=== PATIENT | male | born 1985 | race Caucasian/White ===

== ENCOUNTER 2021-06-28 07:46 | Emergency (ER) | payer BC, SELFPAY ==
[2021-06-28 07:47] VITALS: BP 169/103; PULSE 51; RESP 16; TEMP 36; O2SAT 99; BMI 21.6
--- NOTE | 2021-06-28 07:56 | CT_ITS ---
STUDY: CT ABDOMEN AND PELVIS WITHOUT CONTRAST REASON FOR EXAM: Male, 36 years old. Left flank pain. History of kidney stones. RADIATION DOSAGE (If Supplied By Facility): CTDIvol = ( 6.25 ) mGy, DLP = ( 298.42 ) mGycm TECHNIQUE: Transaxial images were obtained from the dome of the diaphragm to the symphysis pubis without oral contrast, and without intravenous contrast. Sagittal and coronal images were reconstructed. Individualized dose optimization techniques were used for this CT. COMPARISON: None. FINDINGS: The visualized lung bases are unremarkable. The visualized portions of the heart are within normal limits. Normal liver. Normal gallbladder and extrahepatic biliary system. Normal spleen. Normal pancreas. Normal bilateral adrenal glands. 2 mm calculus in the midpole calyx of the right kidney. Tiny nonobstructive calculi are seen in the lower pole calyx of the right kidney. Tiny nonobstructive left intrarenal calculi. Mild degree of the left hydronephrosis and left hydroureter due to a 2.6 mm calculus at the left ureterovesical junction. Normal visualized stomach. Normal small intestine. Normal colon. The appendix is visualized and appears normal. Normal abdominal aorta. Normal inferior vena cava. Normal retroperitoneum. Normal urinary bladder. Normal abdominal wall. Normal osseous structures. CT/Abdomen/Pelvis without Cont IMPRESSION: 2.6 mm calculus at the left ureterovesical junction causing a mild degree of left hydronephrosis and left hydroureter. Small bilateral nonobstructive intrarenal calculi. Electronically Signed: Arpan Hernandez MD at 8:34 EST , Service support ,
--- NOTE | 2021-06-28 07:58 | ED.VIS.GI ---
HPI HPI - GI History of Present Illness Chief Complaint: Abd Pain Informant: patient Abdominal Pain/Flank Pain Onset: Today Context: Sudden Onset Timing: Continuous Quality: Aching Location: LUQ and LLQ Worsened by: Nothing Relieved by: Nothing Nausea/Vomiting/Emesis GI Symptom: Negative for Nausea and Vomiting Diarrhea/Melena/Hematochezia GI Symptom: Negative for Diarrhea, Melena and Hematochezia Narrative Narrative: Patient presents with left-sided abdominal pain that began today. Patient states he had a bowel movement around 4 AM and his pain started shortly after that. Patient states the pain is over the left mid abdomen. Patient states nothing makes it better nothing makes it worse. Patient denies any nausea or vomiting. Patient denies any diarrhea, melena, or hematochezia. Patient denies any dysuria, hematuria, or frequency. Patient admits to some subjective chills but denies any fevers. [facility] Medical History (Updated 06/28/21 @ 09:[address] Jacob De Guzman DO) Kidney calculi Medical History no medical history no medical history Home Medications hydrocodone-acetaminophen 1 tab PO Q6H PRN PRN 3 Days #10 tablet 06/28/21 [Rx Last Taken Unknown] Allergy/AdvReac Type Severity Reaction Status Date / Time No Known Allergies Allergy Verified 06/28/21 08:03 Surgical History no surgical history no surgical history Social History Smoking Status: Never smoker ROS ROS ED Constitutional Constitutional ED: Denies chills or fever(s) Eyes Eyes: Denies blurry vision or change in vision ENT ENT ED: Denies rhinorrhea or sore throat Cardiovascular Cardiovascular: Denies chest pain or palpitations Respiratory/Chest Respiratory/Chest: Denies cough or dyspnea Gastrointestinal Gastrointestinal: Reports abdominal pain; Denies diarrhea, nausea or vomiting Genitourinary Genitourinary ED: Denies dysuria or hematuria Musculoskeletal Musculoskeletal: Denies back pain or neck pain Integumentary Denies abscess or rash Neurologic Neurologic: Denies headache(s) or weakness Allergic/Immunologic Allergic/Immunologic ED: Denies mouth swelling or urticaria EXAM Physical Exam Const Vital Signs: 06/28/21 07:47 06/28/21 08:00 Temperature 96.8 F L 96.8 F L Temperature Source Temporal Temporal Pulse Rate 51 L 51 L Respiratory Rate 16 16 Blood Pressure 169/103 H 169/103 H Blood Pressure Mean 125 125 Pulse Ox 99 99 Oxygen Delivery Method Room Air Room Air Positive well nourished and well developed General Appearance ED: well developed HEENT Reports moist mucous membranes Neck supple and no JVD Resp normal respiratory effort and clear to auscultation bilaterally Cardio regular rate, regular rhythm and no murmurs GI normal to inspection, nondistended, normoactive bowel sounds Palpation: soft and tender LLQ (Mild) and LUQ; Negative for guarding or rebound tenderness present Back/Spine General Back: CVA tenderness left Extremity normal to inspection General Extremety ED: Negative for edema or tenderness General Extremity: Negative for edema Neuro oriented x3, CN's II-XII intact bilaterally and no sensory deficits noted Sensorium / Orientation: alert Motor Exam: strength 5/5 throughout Psych mental status grossly normal Skin no rashes or lesions noted MDM MDM MDM Narrative Medical decision making narrative: Patient was given IV fluids, morphine, and Zofran. CBC shows a mild leukocytosis of 16.2. Comprehensive metabolic profile showed a elevated creatinine of 1.72. Glucose was slightly elevated at 170. Urinalysis does not show any evidence of urinary tract infection. CT scan of the abdomen pelvis was obtained. There is a 2.6 mm stone at the left ureterovesicular junction causing mild hydronephrosis and hydroureter. There are small nonobstructive renal calculi noted as well. This was interpreted by the radiologist and reviewed by myself. Patient was feeling better on reevaluation. Patient was advised of his findings. Patient states he has had a kidney stones in the past but has not had one in over a year. Patient was given a prescription for [place]. Patient was advised that his labs should normalize after he passes the stone. Patient was given a referral for urology. Patient was instructed to return if worse in any way. Patient understood and was agreeable with the plan. All questions were answered. Lab Data Attestation: I reviewed the patient's lab results. Labs: Laboratory Results - last 24 hr 06/28/21 06/28/21 06/28/21 08:02 08:02 08:02 WBC 16.2 H RBC 5.37 Hgb 15.3 Hct 46.4 MCV 86.4 MCH 28.5 MCHC 33.0 RDW Std Deviation 38.7 RDW Coeff of Francisca 12.4 Plt Count 207 MPV 9.9 Immature Gran % (Auto) 0.500 Neut % (Auto) 90.9 H Lymph % (Auto) 5.7 L [place] % (Auto) 2.7 Eos % (Auto) 0.1 Baso % (Auto) 0.1 Absolute Neuts (auto) 14.7 H Absolute Lymphs (auto) 0.92 Nucleated RBC % 0 Sodium 139 Potassium 3.8 Chloride 104 Carbon Dioxide 29.0 Anion Gap 6 BUN 17 Creatinine 1.72 H Estim Creat Clear Calc 57.91 Est GFR (MDRD) Af Amer 58 L Est GFR (MDRD) Non-Af 48 L BUN/Creatinine Ratio 9.9 L Glucose 170 H Calcium 9.3 Total Bilirubin 0.50 AST 10 L ALT 24 Alkaline Phosphatase 65 Total Protein 7.8 Albumin 4.3 Globulin 3.5 Albumin/Globulin Ratio 1.2 Lipase 177 Urine Color Yellow Urine Clarity Sl. Cloudy Urine pH 7.0 Ur Specific [place] 1.015 Urine Protein 15 H Urine Glucose (UA) 100 H Urine Ketones Negative Urine Occult Blood 250 H Urine Nitrite Negative Urine Bilirubin Negative Urine Urobilinogen Normal Ur Leukocyte Esterase Negative Urine RBC 25-50 SEEN Urine WBC 0 SEEN Ur Squamous Epith Cells 0 SEEN Urine Bacteria 0 SEEN Urine Mucus 0 SEEN Radiography Diagnostic Testing: Clinical Impression(s) from Imaging Studies Abdomen/Pelvis CT 06/28/21 07:56 IMPRESSION: 2.6 mm calculus at the left ureterovesical junction causing a mild degree of left hydronephrosis and left hydroureter. Small bilateral nonobstructive intrarenal calculi. Electronically Signed: Arpan Hernandez MD at 8:34 EST , Service support , Discharge Plan Triage Chief Complaint: Abd Pain ED Provider: Jacob De Guzman Dx/Rx/DC Orders Clinical Impression: Calculus of distal left ureter Instructions: ED Kidney Stone w/ Colic Prescriptions: New hydrocodone-acetaminophen [hydrocodone-acetaminophen] 1 TABLET tablet 1 tab PO Q6H PRN PRN (Reason: Pain) 3 Days Qty: 10 RF: 0 Primary Care Provider: Gianluca Lau Referrals: Gianluca Lau MD [Primary Care Provider] - 3-5 Days Rolando,Cameron, MD [STAFF PHYSICIAN] - 3-5 Days Disposition Disposition: Home, Self Care
[2021-06-28 08:00] VITALS: BP 169/103; PULSE 51; RESP 16; TEMP 36; O2SAT 99
[2021-06-28] MEDS: 0.9% Normal Saline 1,000 ML 1000 ML IV (08:04)
[2021-06-28] MEDS: Ondansetron 4 MG/2 ML Vial IV (08:04)
[2021-06-28] MEDS: Morphine 4 MG/ML Syringe IV ×2 (08:05→10:44)
[2021-06-28 08:08] LABS: Absolute Lymphocyte Count 0.92 X10^3/uL (0.83-4.51); Absolute Neutrophil Count 14.7 X10^3/uL (2.0-7.7); Bacteria 0 SEEN /hpf (None Seen); Basophil# 0.02 X10^3/uL; Basophil% 0.1 % (0-1); Eosinophil# 0.02 X10^3/uL; Eosinophils% 0.1 % (0-5); Hematocrit 46.4 % (40-54); Hemoglobin 15.3 g/dL (13.0-16.5); Lymphocyte # 0.92 X10^3/ul (0.83-4.51); Lymphocyte % 5.7 % (19-41); Mean Corpuscular Hgb 28.5 pg (27.0-32.0); Mean Corpuscular Volume 86.4 fL (80-94); Mean Platelet Vol. 9.9 fl (6.2-12.0); Monocyte# 0.44 X10^3/uL; Monocyte% 2.7 % (0-10); Mucous, Urine 0 SEEN /hpf (<or=2+); NRBC Flagged by Analyzer 0 % (0-5); Neutrophil # 14.67 X10^3/uL (2.7-7.7); Neutrophil % 90.9 % (47-70); Platelet Count 207 K/mm3 (150-450); RBC Distribution Width CV 12.4 % (11.6-14.6); RBC Distribution Width SD 38.7 fl (35.1-43.9); Red Blood Count 5.37 M/mm3 (4.6-6.2); Squamous Epithelial Cells - UA 0 SEEN /hpf (0-5); White Blood Cells 0 SEEN /hpf (0-5); White Blood Count 16.2 K/mm3 (4.4-11.0)
[2021-06-28 08:10] LABS: Color, Urine Yellow (Yellow); Glucose, Dipstick 100 mg/dl (Normal); Ketone-Dipstick Negative (Negative); Leukocyte Esterase-Dipstick Negative /ul (Negative); Nitrite-Dipstick Negative (Negative); Occult Blood-Urine 250 /ul (Negative); Protein-Dipstick 15 mg/dl (Negative); Specific Gravity, Urine 1.015 (1.002-1.030); Urine Bilirubin Dipstick Negative (Negative); Urine Clarity Sl. Cloudy (Clear); Urine Urobilinogen Normal (Normal)
[2021-06-28 08:23] LABS: Red Blood Cells-Urine 25-50 SEEN /hpf (0-5)
[2021-06-28 08:25] LABS: ALB/GLOB Ratio 1.2 RATIO (0.9-2.4); AST(SGOT) 10 U/L (15-37); Alanine Aminotransfer ALT/SGPT 24 U/L (16-61); Albumin, Serum 4.3 g/dL (3.2-5.0); Alkaline Phosphatase 65 U/L (45-117); Anion Gap 6 (5-15); BUN 17 mg/dL (7-18); BUN/Creat Ratio 9.9 RATIO (10-20); Calcium,Total 9.3 mg/dL (8.5-10.1); Chloride 104 mmol/L (98-107); Creatinine, Serum 1.72 mg/dL (0.70-1.30); EST Glomerular Filtration Rate 48 mL/min (>60); Est Glom Filt Rate - Afr Amer 58 mL/min (>60); Estimated Creatinine Clearance 57.91 ml/min; Globulin 3.5 g/dL (2.2-4.2); Glucose 170 mg/dL (74-106); Lipase 177 U/L (73-393); Potassium 3.8 mmol/L (3.5-5.1); Protein, Total 7.8 g/dL (6.4-8.2); Sodium Level 139 mmol/L (136-145)
[2021-06-28 11:15] VITALS: RESP 18
== END 2021-06-28 11:29 | disposition home or self-care (01) ==
PROVIDERS: Emergency Provider Emergency Medicine; PCP Family Medicine
DX: N20.1 Calculus of ureter (principal)
CPT/HCPCS: 74176; 80053; 81001; 83690; 85025; 96361; 96374; 96375; 96376; 99283; J7030; A4216; J2405

== ENCOUNTER → 2022-04-01 | Outpatient (CLI) | payer BC, SELFPAY ==
--- NOTE | 2022-04-01 09:44 | US_ITS ---
INDICATION: MASS felt by doctor EXAMINATION: Ultrasound US Thyroid (eg thyroid, parathyroid, parotid) TECHNIQUE: Lim scale and color doppler imaging was performed of the thyroid gland. COMPARISON: None. FINDINGS: RIGHT THYROID LOBE: 4.9 x 1.3 x 1.4 cm.. Homogeneous echotexture with normal vascularity. [No thyroid nodules are present. LEFT THYROID LOBE: 5.2 x 1.5 x 1.4 cm.. Homogeneous echotexture with normal vascularity. [4 x 2 x 2 mm almost completely anechoic lesion with single, mildly echogenic focus centrally suggesting probable colloid cyst. No other nodule. ISTHMUS: 2 mm. No thyroid nodules are present. US/Thyroid IMPRESSION: No thyroid mass. Normal size thyroid gland. 4 x 2 x 2 mm benign thyroid nodule likely representing colloid cyst. Electronically Signed: Tim Medina DO at 0:05 EDT ,
== END | disposition home or self-care (01) ==
PROVIDERS: PCP Family Medicine; Referring Provider Family Medicine; Visit Provider Family Medicine
DX: E07.9 Disorder of thyroid, unspecified (principal)
CPT/HCPCS: 76536

== ENCOUNTER → 2022-04-01 | Outpatient (CLI) | payer BC, SELFPAY ==
[2022-04-01 10:32] LABS: Free T3 3.4 pg/mL (2.18-3.98); T4 Free Direct 1.17 ng/dL (0.76-1.46); Thyroid Stim Hormone (TSH) 0.72 uIU/mL (0.358-3.74)
[2022-04-03 08:17] LABS: Thyroid Stim Immunoglob <0.10 IU/L (0.00-0.55)
== END | disposition home or self-care (01) ==
LOC: MFPLAB 08:45
PROVIDERS: PCP Family Medicine; Referring Provider Family Medicine; Visit Provider Family Medicine
DX: E07.9 Disorder of thyroid, unspecified (principal)
CPT/HCPCS: 36415; 84439; 84443; 84445; 84481

== ENCOUNTER 2022-07-30 07:34 | Day surgery (SDC) | payer BC, SELFPAY ==
[2022-07-30] VITALS (8 sets, daily range): BP systolic 102–164; BP diastolic 58–101; PULSE 51–95; RESP 16; TEMP 36.7–37.2; O2SAT 96–99; BMI 23.9
[2022-07-30] MEDS: Lactated Ringers 1,000 ML 15 ML IV (08:07)
--- NOTE | 2022-07-30 08:30 | EGD_PTH ---
PATIENT: LIZZ GALVAN LOC: EN U#:[id number] AGE/SX: 37/M ROOM: RE07/30/[address]: Dr. Caleb Squires MD : 1985 BED: DIS: 07/30/2022 SPEC #: [id number] RECD: 07/30/22 10:26 STATUS: ELIJAH SCAR #: [id number] DANO: 07/30/22 08:[address]: Caleb Squires DEPT: SURGICAL PATHOLOGY RECD BY: Chani Jewell ENTERED: 07/30/22 11:09 SP TYPE: EGD BIOPSY [facility] DR: Dr. Gurpreet Barcenas MD Tissues: A - Gastric mucous membrane B - Stomach, NOS C - Esophagus, NOS Procedures: Surgery Specimen Level IV HEADER OPERATION: EGD ([facility]), biopsy PRE-OP DIAGNOSIS: Globus sensation TISSUE SUBMITTED: A ? Antrum biopsy, B ? Gastroesophageal junction biopsy, C ? Mid esophagus biopsy MICROSCOPIC DIAGNOSIS A. Antrum, biopsy: Mild gastritis. See microscopic description and comment. B. Gastroesophageal junction, biopsy: Fragments of benign squamous mucosa with reactive changes. C. Mid esophagus, biopsy: A fragment of squamous epithelium, no pathologic diagnosis. SJ:huseyin 07/31/2022 COMMENT A. The results of immunohistochemistry for Helicobacter pylori will be reported separately ([id number]). MICROSCOPIC DESCRIPTION Slides are reviewed. A. The specimen shows fragments of gastric mucosa with chronic inflammatory cell infiltrates in the lamina propria consisting of lymphocytes and plasma cells, consistent with mild chronic gastritis. GROSS DESCRIPTION A - Received in fixative is one container labeled with the patient's name and designated antrum biopsy. The specimen consists of one irregular fragment of light riggs soft tissue that measures 0.3 x 0.3 x 0.1 cm. The specimen is totally submitted in one cassette. B - Received in fixative is one container labeled with the patient's name and designated GE junction biopsy. The specimen consists of two irregular fragments of light riggs soft tissue that in aggregate measure 0.7 x 0.5 x 0.1 cm. The specimen is totally submitted in one cassette. C - Received in fixative is one container labeled with the patient's name and designated mid esophagus biopsy. The specimen consists of one irregular fragment of light riggs soft tissue that measures 1 x 0.2 x 0.1 cm. The specimen is totally submitted in one cassette. / SJ:rg 07/30/2022 TC:3 CPT: 27071 x3
--- NOTE | 2022-07-30 08:30 | IMM_PTH ---
PATIENT: LIZZ GALVAN LOC: EN U#:[id number] AGE/SX: 37/M ROOM: RE07/30/[address]: Dr. Caleb Squires MD : 1985 BED: DIS: 07/30/2022 SPEC #: [id number] RECD: 07/30/22 11:44 STATUS: ELIJAH REQ #: [id number] DANO: 07/30/22 08:[address]: Caleb Squires DEPT: IMMUNOHISTOCHEMISTRY RECD BY: Katelin Madrid ENTERED: 07/30/22 11:44 SP TYPE: IMMUNO OTHR DR: Dr. Gurpreet Barcenas MD Tissues: A - Stomach, NOS Procedures: H Pylori (initial) PHYSICIAN & INSTITUTION [place] [id number] SPECIMEN INFORMATION: Tissue Source: A ? Antrum biopsy Clinical Info: Globus sensation Specimen Number: [id number] CPT code: 95638 METHODOLOGY: Deparaffinized sections of prefer/formalin-fixed tissue or PAP/DQ stained slides are incubated with monoclonal/polyclonal antibodies/oligonucleotide probes. Localization is made via biotin free immunoperoxidase method. Appropriate controls are performed and reacted as expected. Results on target cell population are indicated in the following table: RESULTS: ANTIBODY / CLONE RESULT Block A H Pylori (polyclonal) negative These tests were developed and their performance characteristics determined by [facility]. They may not have been cleared or approved by the U.S. Food and Drug Administration. The FDA has determined that such clearance or approval is not necessary. The above immunohistochemical/dualISH markers are ordered and reviewed by the Pathologist. INTERPRETATION: A. Antrum, biopsy: Negative for Helicobacter pylori organisms. AM:huseyin 07/31/2022
--- NOTE | 2022-07-30 08:33 | PCM.HP.BLA ---
History and Physical Date of Admission: 07/30/22 Visit Reasons:?Swallow Issues Chief Complaint: neck lump [place] Required: No Is patient in pain?: No Allergies No Known Allergies Allergy (Verified 04/15/22 13:57) Medications NK? 04/15/22 [History Confirmed 04/15/22] [facility] Medical History?(Updated 04/15/22 @ 14:[address] Caleb Squires MD) Kidney calculi Surgical History?(Updated 04/15/22 @ 13:58 by Radha Solorio) No pertinent past surgical history Social History? Smoking Status:? Never smoker HPI HPI HPI: LIZZ GALVAN, is a 37 M who presents to the office today for surgical consultation regarding swallowing issues.? The patient is referred by Dr. Gurpreet Barcenas and a written copy my surgical consult recommendations will return to him.? Upon his initial concern he had complained of a lump in his throat.? On April 01, 2022 thyroid ultrasound was obtained.? Thyroid disease was felt to be of normal size and there was a very small 4 by 2 x 2 millimeter cyst on the left.? Thyroid function tests were normal. Patient is complaining of a couple week history of a palpable mass and tender sensation midline throat area.? There is been no history of trauma.? He says he feels it both externally and internally.? More so with solid food.? He denies any classic reflux symptoms.? He is not on any medication.? He has not had any recent trauma. ROS General General: Yes fatigue; No weight change, appetite, colon cancer or breast cancer HEENT HEENT: Yes difficulty swallowing; No eye injury, eye surgery, swollen glands or hoarseness Endo Endocrine: No thyroid disease, diabetes mellitus, thyroid cancer, Hair loss, heat intolerance or cold intolerance Breast Breast: No left breast lump, right breast lump, nipple discharge, breast pain, abnormal mammogram, abnormal US or breast enlargement Musc Musculoskeletal: No back problems, arthritis, rheumatoid arthritis, gout or joint pain Cardio Cardiovascular: No murmur, pacemaker, heart disease, atrial fibrillation, high blood pressure, heart attack, heart stent, palpitations, shortness of breat with exertion or chest pain Psych Psychiatric: No depression, anxiety or hearing voices Resp Respiratory: No shortness of breath, No sleep apnea, No cough, No COPD, No asthma, No emphysema and No wheezing Gastro Gastrointestinal: No abdominal pain, No nausea or vomiting, No diarrhea, No constipation, No blood in stool, No acid reflux, No hemorrhoids, No ulcers, No gallbladder problem and No black,tarry stools [place] Hematologic: No blood thinners, No blood disorders, No bleeding, No anemia and No blood clots Exam HENMT Other: The patient points to the cricoid cartilage.? It is very prominent in him with a very slender neck.? There is no crepitus no unusual motion.? Feels clinically normal.? It is distinctly below the isthmus of the thyroid.? No concerning mass no adenopathy. Assessment and Plan Assessment and Plan (1) Globus sensation: ?Status:?Acute ?Plan: The patient directs his discomfort right to the cricoid cartilage.? I cannot find any particular etiology with that.? Not clear to me whether he possibly could be having silent reflux sensing at that location.? I do not believe that his discomfort is related to his thyroid and the patient is well aware that the 4 by 2 x 2 millimeter area would not be something that he can palpate. It is possible that he has silent reflux.? I have instructed him to take [id number] omeprazole 20 mg twice daily to see if that improves his condition overall.? I have asked him to take 1 to 2 weeks of taking the medication and then recontact our office with a progress report. I discussed with him potential for ear nose and throat visit to help decipher if need be.? I did offer him the potential future esophagogastroduodenoscopy looking for possible silent reflux disease. He has had an opportunity ask and have questions answered.? He will contact us with a follow-up report. I appreciate the opportunity of assisting with the surgical care Copy: Dr. Gurpreet Squires M.D., F.A.C.S. We initiated him on omeprazole. He took this for an entire month. Relief of symptoms in the globus sensation of his anterior neck. He points just about to the thyroid cartilage. Because of the ongoing symptoms he presents now for planned esophagogastroduodenoscopy. The remainder of his presentation and physical on the change. I have suggested to him that if we do not find a potential etiology today with the esophagogastroduodenoscopy that the next step for him would be referral to ENT. Caleb Squires M.D., F.A.C.S.
--- NOTE | 2022-07-30 09:05 | OP.EGD_ITS ---
Patient Name: John Romero Procedure Date: 07/30/2022 8:38 AM Date of : 1985 Age: 37 Procedure: Upper GI endoscopy Indications: Globus sensation Providers: Caleb Squires MD Referring MD: Gurpreet Barcenas MD Medicines: See the Anesthesia note for documentation of the administered medications Complications: No immediate complications. Procedure: Pre-Anesthesia Assessment: - Prior to the procedure, a History and Physical was performed, and patient medications and allergies were reviewed. The patient's tolerance of previous anesthesia was also reviewed. The risks and benefits of the procedure and the sedation options and risks were discussed with the patient. All questions were answered, and informed consent was obtained. Prior Anticoagulants: The patient has taken no previous anticoagulant or antiplatelet agents. ASA Grade Assessment: II - A patient with mild systemic disease. After reviewing the risks and benefits, the patient was deemed in satisfactory condition to undergo the procedure. After obtaining informed consent, the endoscope was passed under direct vision. Throughout the procedure, the patient's blood pressure, pulse, and oxygen saturations were monitored continuously. The gastroscope was introduced through the mouth, and advanced to the second part of duodenum. The upper GI endoscopy was accomplished without difficulty. The patient tolerated the procedure well. Scope In: 8:46:38 AM Scope Out: 8:56:54 AM Total Procedure Duration Time 0 hours 10 minutes 16 seconds Findings: LA Grade A (one or more mucosal breaks less than 5 mm, not extending between tops of 2 mucosal folds) esophagitis with no bleeding was found 40 cm from the incisors. Biopsies were taken with a cold forceps for histology. A 1 cm hiatal hernia was present. Diffuse mildly erythematous mucosa without bleeding was found in the gastric antrum. Biopsies were taken with a cold forceps for histology. The examined duodenum was normal. The mid esophagus was normal. Biopsies were taken with a cold forceps for histology. Impression: - LA Grade A reflux esophagitis. Biopsied. - 1 cm hiatal hernia. - Erythematous mucosa in the antrum. Biopsied. - Normal examined duodenum. Recommendation: - Discharge patient to home. - Resume previous diet. - Continue present medications. - Telephone my office for pathology results in 1 week. Trial of Reflux Gourmet nightly to see if it blocks symptoms Procedure Code(s): --- Professional --- 68859, Esophagogastroduodenoscopy, flexible, transoral; with biopsy, single or multiple Diagnosis Code(s): --- Professional --- K21.0, Gastro-esophageal reflux disease with esophagitis K44.9, Diaphragmatic hernia without obstruction or gangrene K31.89, Other diseases of stomach and duodenum F45.8, Other somatoform disorders CPT copyright 2017 [employer]. All rights reserved. The codes documented in this report are preliminary and upon wool grader review may be revised to meet current compliance requirements. Caleb Squires MD 07/30/2022 9:04:57 AM This report has been signed electronically. Number of Addenda: 0 Note Initiated On: 07/30/2022 8:38 AM
--- NOTE | 2022-07-30 09:06 | OP.CCLET_ITS ---
07/30/2022 Gurpreet Barcenas MD [address] [id number] Re : Upper GI endoscopy procedure for John Romero Dear Dr. Barcenas This procedure was performed on Saturday, July 30, 2022. My impressions and recommendations are as follows: Impressions : - LA Grade A reflux esophagitis. Biopsied. - 1 cm hiatal hernia. - Erythematous mucosa in the antrum. Biopsied. - Normal examined duodenum. Recommendations : - Discharge patient to home. - Resume previous diet. - Continue present medications. - Telephone my office for pathology results in 1 week. Trial of Reflux Gourmet nightly to see if it blocks symptoms My findings are described in the full procedure note, which is enclosed. If I can be of further assistance, please feel free to contact me at Doctor phone number(s): Work: . Sincerely, Caleb Squires MD 07/30/2022 9:04:57 AM This report has been signed electronically.
== END 2022-07-30 09:57 | disposition home or self-care (01) ==
LOC: EN 07:35 → AC 07:36
PROVIDERS: PCP Family Medicine; Referring Provider Family Medicine; Visit Provider Surgery
PROC: 0DJ08ZZ Inspection of Upper Intestinal Tract, Via Natural or Artificial Opening Endoscopic (ICD-10-PCS; CPT 43235; principal; 2022-07-30 08:25)
DX: K21.00 Gastro-esophageal reflux disease with esophagitis, without bleeding (principal); K44.9 Diaphragmatic hernia without obstruction or gangrene; K31.89 Other diseases of stomach and duodenum; K29.50 Unspecified chronic gastritis without bleeding
CPT/HCPCS: 43239; 88305; 88342; J7120; J2405